=== PATIENT | female | born 1965 | race Caucasian/White ===

== ENCOUNTER 2017-02-22 19:43 | Observation (INO) ==
[2017-02-22 20:30] LABS: MANUAL DIFF NEEDED? NO
[2017-02-22 20:34] LABS: BASO% 0.4 % (0.0-0.8); EOS# 0.28 X1000 (0.0-0.7); EOS% 2.5 % (0.0-10.0); HEMATOCRIT 46.3 % (37.0-47.0); HEMOGLOBIN 15.5 g/dL (12.0-16.0); IMM GRAN# 0.03 X1000 (0.0-0.04); IMM GRAN% 0.3 % (0.0-0.5); LYMPH# 3.87 X1000 (1.2-3.4); LYMPH% 34.8 % (20.5-51.1); MCH 29.4 PG (27-31); MCHC 33.5 g/dL (33-37); MCV 87.7 FL (81-99); MONO# 1.02 X1000 (0.11-0.59); MONO% 9.2 % (1.7-9.3); MPV 10.8 FL (7.4-10.4); NEUT% 52.8 % (42.2-75.2); PLT 246 X1000 (130-400); RBC 5.28 XMIL (4.2-5.4)
--- NOTE | 2017-02-22 20:38 | EKG Report ---
Test Performed on : 02/22/2017 8:16:59 PM Test Reason : CHEST PAIN PRESSURE Blood Pressure : / mmHG Vent. Rate : 079 BPM Atrial Rate : 079 BPM P-R Int : 136 ms QRS Dur : 068 ms QT Int : 398 ms P-R-T Axes : 042 002 072 degrees QTc Int : 456 ms Normal sinus rhythm. Nonspecific T wave abnormality Abnormal ECG No previous ECGs available Unconfirmed Result
[2017-02-22] MEDS ORDERED: ASPIRIN PO ONE (20:39)
[2017-02-22] MEDS ORDERED: TYLENOL PO ONE (20:40)
[2017-02-22] MEDS ORDERED: ASPIRIN ONE (20:40)
[2017-02-22] MEDS ORDERED: NITROGLYCERIN TOP ONE (20:40)
[2017-02-22] MEDS ORDERED: NS 1,000 ML IV PRN (20:41)
[2017-02-22] MEDS ORDERED: LABETALOL IV ONE (20:42)
--- NOTE | 2017-02-22 20:48 | Diag Imaging Result Doc PS360 ---
EXAM: CHEST-2 VIEWS HISTORY: CHEST PAIN PRESSURE TECHNIQUE: PA and lateral chest COMMENT: There is no evidence of acute cardiac or pulmonary disease. There are no previous studies. IMPRESSION: No acute disease. Electronically signed by Padilla Lau 02/22/2017 8:46 PM
[2017-02-22] MEDS ORDERED: LOPRESSOR ONE (21:03)
[2017-02-22 21:06] LABS: AGAP 15; ALBUMIN 4.2 g/dL (3.5-5.0); ALKALINE PHOSPHATASE 79 U/L (32-104); BUN 13 mg/dL (8-22); CALCIUM 9.5 mg/dL (8.8-10.2); CHLORIDE 99 mmol/L (98-107); CK PROFILE 76 U/L (24-173); COSMO 272; GOT 30 U/L (10-30); GPT 35 U/L (10-36); MAGNESIUM 1.8 mg/dL (1.5-2.7); POTASSIUM 3.7 mmol/L (3.5-5.1); SODIUM 136 mmol/L (136-145); TCO2 23 mmol/L (25-35); TOTAL PROTEIN 7.2 g/dL (6.3-8.3)
[2017-02-22] MEDS ORDERED: LOPRESSOR IV ONE (21:24)
--- NOTE | 2017-02-22 23:13 | EKG Report ---
Test Performed on : 02/22/2017 11:08:33 PM Test Reason : CP Blood Pressure : / mmHG Vent. Rate : 070 BPM Atrial Rate : 070 BPM P-R Int : 140 ms QRS Dur : 068 ms QT Int : 376 ms P-R-T Axes : 042 002 056 degrees QTc Int : 406 ms Normal sinus rhythm. Nonspecific T wave abnormality Abnormal ECG When compared with ECG of 22-FEB-2017 20:16, (Unconfirmed) No significant change was found Unconfirmed Result
[2017-02-22] MEDS ORDERED: PERCOCET-5 PO ONE (23:24)
[2017-02-23] MEDS ORDERED: ZOFRAN IV PRN (00:24)
[2017-02-23] MEDS ORDERED: NITROGLYCERIN SL PRN (00:24)
[2017-02-23] MEDS ORDERED: NS 1,000 ML IV ONE (00:24)
--- NOTE | 2017-02-23 00:24 | PROVIDER DOCUMENTATION ---
This chart was entered by Yelena Mosquera Scribe, acting as scribe for Sebastian Bahena MD. HPI-Chest Pain - General Chief Complaint: Chest Pain Stated Complaint: CHEST TIGHTNESS,SOB B/P ELEVATED Time Seen by Provider: 02/22/17 20:18 Source: patient Allergies/Adverse Reactions: Patient Allergies Allergy/AdvReac Type Severity Reaction Status Date / Time nitrofurantoin Allergy RASH Verified 06/23/16 09:24 macrocrystalline * [From Macrodantin] Home Medications: Home Medication List Medication Instructions Recorded Confirmed Last Taken Type Eletriptan [Relpax] 40 mg PO DIRECTED PRN PRN 09/01/15 06/23/16 06/23/16 History Lisinopril 10 mg PO DAILY #30 tablet 06/23/16 Unknown Rx - History of Present Illness-CP Nature of Presenting Problem: pt is a 51 year old female who came to the ED with a cc of chest/back pain for the last two days. Pt reports that her blood pressure has been running high even after taken medication. Pt reports she has been SOB and nauseous. Location: reports: back Chest Pain Radiation: reports: back Quality of Pain: reports: pressure, tightness Onset/Duration: 2 days ago Timing: still present Context/Activities at Onset: reports: none Modifying Factors: improves with: nothing Associated Symptoms: reports: headache, nausea Nitro Today/Relief: no nitro taken today Aspirin Treatment Today: no aspirin today Prior Chest Pain/Cardiac Workup: reports: no prior chest pain Similar Symptoms Previously?: No Recently Seen Here or By Another Healthcare Provider: No Review of Systems - Adult - REVIEW OF SYSTEMS - ADULT Constitutional: denies: chills, fever Eyes: reports: no symptoms reported Ears, Nose, Mouth & Throat: denies: ear pain, nose pain Cardiovascular: reports: chest pain. denies: irregular heart rate, orthopnea Respiratory: reports: shortness of breath. denies: cough, pleurisy Gastrointestinal: reports: nausea. denies: difficulty swallowing, vomiting Genitourinary: reports: no symptoms reported Musculoskeletal: reports: back pain. denies: joint pain, joint swelling Integumentary: reports: no symptoms reported Neurological: reports: no symptoms reported Psychiatric: reports: no symptoms reported Endocrine: reports: no symptoms reported Hematologic/Lymphatic: reports: no symptoms reported Allergic/Immunologic: reports: no symptoms reported All Other Systems: Reviewed and Negative Past History - Adult - PAST MEDICAL HISTORY-ADULT Review of Records: reports: Nursing Assessment Review Major Childhood Illnesses: reports: denies history Cardiovascular: reports: HTN Respiratory: reports: denies history Gastrointestinal: reports: denies history Obstetrical/Gynecological: reports: denies history Genitourinary: reports: denies history Musculoskeletal: reports: denies history Neurological: reports: headaches/migraines Psychiatric: reports: denies history Endocrine/Immune: reports: denies history Other Conditions: reports: denies history - PRIOR SURGERIES/PROCEDURES Surgical/Procedure History: reports: hysterectomy, joint replacement, back/neck - PRIOR HOSPITALIZATIONS Prior Hospitalizations: reports: none - IMMUNIZATION STATUS Childhood Immunizations: See Nurse Assessment Flu Vaccine: See Nurse Assessment - FAMILY HISTORY Family History: reviewed, not pertinent Physical Exam-General - PHYSICAL EXAM-ADULT Initial Vital Signs Reviewed: Yes - CONSTITUTIONAL General Appearance: appears well, alert, no apparent distress - EYES Eyes: PERRL/EOMI, pink conjunctivae - HEAD, EARS, NOSE, MOUTH & THROAT HENMT: normocephalic/atraumatic, moist mucous membranes - NECK Neck: non-tender, full range of motion - RESPIRATORY Respiratory: chest non-tender, lungs clear - CARDIOVASCULAR Cardiovascular: tachycardia - GASTROINTESTINAL (ABDOMEN) Abdominal Exam: normal bowel sounds, non tender, soft - MUSCULOSKELETAL Back Exam: normal inspection, no CVA tenderness Extremity: normal range of motion, pedal edema - SKIN Integumentary: normal color, normal turgor - NEUROLOGIC Neurologic: grossly normal - PSYCHIATRIC Psych/Mental Status: normal mood/affect, normal thought content, normal thought process, oriented x 3 Progress - PLAN OF CARE/RESULTS Progress/Plan/Lab Results: Vital Signs - 8 hr 02/22/17 20:06 02/22/17 21:00 02/22/17 22:00 Temperature 98 F Pulse Rate 82 76 67 Respiratory Rate 18 24 20 Blood Pressure 172/93 143/92 131/81 O2 Sat by Pulse Oximetry 98 97 96 02/22/17 22:45 Temperature Pulse Rate 66 Respiratory Rate 23 Blood Pressure 132/82 O2 Sat by Pulse Oximetry 97 Laboratory Results - last 24 hr 02/22/17 02/22/17 02/22/17 20:23 20:23 20:23 WBC RBC Hgb Hct MCV MCH MCHC RDW Std Deviation Plt Count MPV Immature Gran % (Auto) Neut % (Auto) Lymph % (Auto) [place] % (Auto) Eos % (Auto) Baso % (Auto) Immature Gran # (Auto) Neut # (Auto) Lymph # (Auto) [place] # (Auto) Eos # (Auto) Baso # (Auto) D-Dimer Sodium 136 Potassium 3.7 Chloride 99 Carbon Dioxide 23 L Anion Gap 15 BUN 13 Creatinine 0.8 Estimated GFR/1.73 m2 > 60 BUN/Creatinine Ratio 16 Glucose 89 Calculated Osmolality 272 Calcium 9.5 Magnesium 1.8 Total Bilirubin 0.20 AST 30 ALT 35 Alkaline Phosphatase 79 Creatine Kinase 76 Troponin T < 0.010 Bay-Y-Lfikxjfmhpr Pept 26 Total Protein 7.2 Albumin 4.2 Globulin 3.0 Albumin/Globulin Ratio 1.0 02/22/17 02/22/17 02/22/17 20:23 20:23 22:55 WBC 11.13 H RBC 5.28 Hgb 15.5 Hct 46.3 MCV 87.7 MCH 29.4 MCHC 33.5 RDW Std Deviation 13.8 Plt Count 246 MPV 10.8 H Immature Gran % (Auto) 0.3 Neut % (Auto) 52.8 Lymph % (Auto) 34.8 [place] % (Auto) 9.2 Eos % (Auto) 2.5 Baso % (Auto) 0.4 Immature Gran # (Auto) 0.03 Neut # (Auto) 5.89 Lymph # (Auto) 3.87 H [place] # (Auto) 1.02 H Eos # (Auto) 0.28 Baso # (Auto) 0.04 D-Dimer 0.50 Sodium Potassium Chloride Carbon Dioxide Anion Gap BUN Creatinine Estimated GFR/1.73 m2 BUN/Creatinine Ratio Glucose Calculated Osmolality Calcium Magnesium Total Bilirubin AST ALT Alkaline Phosphatase Creatine Kinase 69 Troponin T Zma-M-Asmmcnbamtx Pept Total Protein Albumin Globulin Albumin/Globulin Ratio 02/22/17 22:55 WBC RBC Hgb Hct MCV MCH MCHC RDW Std Deviation Plt Count MPV Immature Gran % (Auto) Neut % (Auto) Lymph % (Auto) [place] % (Auto) Eos % (Auto) Baso % (Auto) Immature Gran # (Auto) Neut # (Auto) Lymph # (Auto) [place] # (Auto) Eos # (Auto) Baso # (Auto) D-Dimer Sodium Potassium Chloride Carbon Dioxide Anion Gap BUN Creatinine Estimated GFR/1.73 m2 BUN/Creatinine Ratio Glucose Calculated Osmolality Calcium Magnesium Total Bilirubin AST ALT Alkaline Phosphatase Creatine Kinase Troponin T < 0.010 Gal-L-Jfjvgbggnjh Pept Total Protein Albumin Globulin Albumin/Globulin Ratio Orders Category Date Time Status Cardiac Monitoring DIRECTED Care 02/22/17 20:12 Active CHEST-2 VIEWS [RAD] Stat Exams 02/22/17 20:12 Completed CBC WITH DIFF [HEME] Stat Lab 02/22/17 20:23 Completed CK PROFILE [SP CHEM] Stat Lab 02/22/17 20:23 Completed CK PROFILE [SP CHEM] Stat Lab 02/22/17 22:55 Completed COMPREHENSIVE METABOLIC PANEL [CHEM] Stat Lab 02/22/17 20:[address] D-D[address]ER [address] [COAG] Stat Lab 02/22/17 20:23 Completed MAGNESIUM [CHEM] Stat Lab 02/22/17 20:23 Completed PRO B-NATRIURETIC PEPTIDE Stat Lab 02/22/17 20:23 Completed TROPONIN T Stat Lab 02/22/17 20:23 Completed TROPONIN T Stat Lab 02/22/17 22:55 Completed 0.9% Sodium Chloride Inj [Ns] 1,000 ml Med 02/22/17 20:41 Active IV 100 mls/hr Acetaminophen [Tylenol] Med 02/22/17 20:40 Discontinued 500 mg PO NOW ONE Aspirin Med 02/22/17 20:40 Discontinued 325 mg .ROUTE .STK-MED ONE Aspirin Med 02/22/17 20:39 Discontinued 325 mg PO NOW ONE Labetalol Med 02/22/17 20:42 Discontinued 20 mg IV NOW ONE Metoprolol [Lopressor] Med 02/22/17 21:03 Discontinued 5 mg .ROUTE .STK-MED ONE Metoprolol [Lopressor] Med 02/22/17 21:24 Discontinued 5 mg IV NOW ONE Nitroglycerin Med 02/22/17 20:40 Discontinued 1 inch TOP NOW ONE Oxycodone/APAP 5 mg/325 mg [Percocet-5] Med 02/22/17 23:24 Discontinued 1 each PO NOW ONE EKG [EKG] Stat Ther 02/22/17 20:12 Draft EKG [EKG] Stat Ther 02/22/17 22:36 Draft Result Diagrams: 02/22/17 20:23 02/22/17 20:23 - REASSESSMENT Reassessment #1 Time Reassessed: 11:00 Status: improving (CHEST TIGHTNESS GONE STILL TIGHTNESS ACROSS LOWER THORACIC BACK) Departure - Departure Date of Disposition Decision: 02/23/17 Time of Disposition Decision: 00:00 DIAGNOSIS: Chest pain with high risk for cardiac etiology Disposition: ADMITTED INPATIENT 09 Certified Medical Emergency: Emergent Condition: Stable Referrals and Follow-Ups: Poncho Alvarenga MD [Primary Care Provider] - - Critical Care Note This patient required my direct & personal management of CC.: No This chart was documented by the indicated scribe, (Yelena Mosquera Scribe) and accurately reflects the services I performed and decisions made by me, Sebastian Bahena MD, as attested by the provider's signature.
[2017-02-23] MEDS ORDERED: TYLENOL PO ONE (03:11)
--- NOTE | 2017-02-23 04:42 | EKG Report ---
Test Performed on : 02/23/2017 04:25:53 AM Test Reason : C/P Blood Pressure : / mmHG Vent. Rate : 057 BPM Atrial Rate : 057 BPM P-R Int : 146 ms QRS Dur : 068 ms QT Int : 452 ms P-R-T Axes : 036 011 -03 degrees QTc Int : 439 ms Sinus bradycardia. Nonspecific T wave abnormality Abnormal ECG When compared with ECG of 22-FEB-2017 23:08, (Unconfirmed) Inverted T waves have replaced nonspecific T wave abnormality in Inferior leads Unconfirmed Result
--- NOTE | 2017-02-23 09:39 | EKG Report ---
Test Performed on : 02/23/2017 09:26:32 AM Test Reason : C/P Blood Pressure : / mmHG Vent. Rate : 058 BPM Atrial Rate : 058 BPM P-R Int : 150 ms QRS Dur : 070 ms QT Int : 458 ms P-R-T Axes : 035 005 013 degrees QTc Int : 449 ms Sinus bradycardia. with premature atrial complexes. Nonspecific T wave abnormality Abnormal ECG When compared with ECG of 23-FEB-2017 04:25, (Unconfirmed) premature atrial complexes. are now present Unconfirmed Result
[2017-02-23] MEDS ORDERED: RELPAX PO PRN (10:19)
[2017-02-23] MEDS ORDERED: MORPHINE IV PRN (10:30)
[2017-02-23] MEDS ORDERED: IMITREX SUBQ ONE (10:38)
[2017-02-23] MEDS ORDERED: LEXISCAN ONE (12:22)
--- NOTE | 2017-02-23 13:11 | HISTORY AND PHYSICAL ---
CHIEF COMPLAINT: Chest pressure. HISTORY OF PRESENT ILLNESS: This is a 51-year-old, female with a history of hypertension and migraine headaches. She presented to the emergency room complaining of chest pressure as well as back pain. She stated that this had been present for the last 48 hours. She had an accompanying headache. She denied any injury, shortness of breath, or palpitations. She cannot state specific exacerbating or alleviating factors. She was noted to have negative troponins. Blood pressure was 172/93 at 1st arrival to the emergency room. She was given nitroglycerin ointment as well as Lopressor and labetalol. Blood pressures did decrease down to 113-140s/60s- 70s. Her chest pressure did subside. She did develop a headache after receiving the nitroglycerin with accompanying nausea and vomiting. She does have migraines but she states this is not her normal migraine. PAST MEDICAL HISTORY: Hypertension and migraine headaches. PAST SURGICAL HISTORY: Breast reduction, D and C, right knee, and back surgery. SOCIAL HISTORY: She denies alcohol, tobacco, or illicit drug use. ALLERGIES: Nitrofurantoin which causes a rash. HOME MEDICATIONS: Clonidine 0.1 p.r.n., lisinopril 10 daily, Relpax 40 daily. REVIEW OF SYSTEMS: A 14 point review of systems was discussed with the patient with pertinent positives stated in the HPI. She denied dizziness, lightheaded, syncope, palpitations, PND, orthopnea, dyspnea on exertion, nausea, vomiting, diarrhea, constipation, black or bloody vomitus, black or bloody stools, hematuria, dysuria, frequency, urgency. PHYSICAL EXAMINATION: GENERAL: This is a 51-year-old female who is lying in the bed, in no distress. VITAL SIGNS: Blood pressure is 113/69, with a heart rate of 57, respirations are 18, temperature is 97.7 degrees oral, with a room air saturation of 98-99%. HEENT: Head is normocephalic, atraumatic. Pupils equal, round, react to light. EOMs are intact. Sclerae are anicteric. Mucous membranes are moist. NECK: Supple. Trachea midline. CARDIOVASCULAR: Regular rate and rhythm. S1 and S2 are appreciated. PULMONARY: Breath sounds are clear with no increased work of breathing noted. GASTROINTESTINAL: Soft, nontender, nondistended with bowel sounds in all 4 quadrants. MUSCULOSKELETAL: Good range of motion of joints. NEUROLOGIC: She is alert and oriented x3. EXTREMITIES: No clubbing cyanosis, or edema. Calves are nontender. Pulses are palpable x4. DIAGNOSTIC DATA: WBC is 11.1, with a hemoglobin of 15.5, hematocrit 46.3, and platelets of 246,000. Sodium is 136, potassium 3.7, BUN 13, creatinine 0.8, with a glucose of 89. Troponins are negative on multiple occasions. D-dimer is 0.5. EKG reveals sinus bradycardia and sinus rhythm, rates varying from 55 to 80s. Chest x-ray revealed no acute disease. ASSESSMENT AND PLAN: This is a 51-year-old, female who is lying in the bed in mild distress due to a migraine headache. 1. Chest pressure. 2. Migraine headaches. 3. Hypertension. 4. Deep venous thrombosis prophylaxis, gastrointestinal prophylaxis. PLAN: She will be admitted to the hospital. Placed on telemetry. She will remain NPO. A Lexiscan will be performed. We will address her headache so that she can perform the stress test. We will give morphine and Zofran, and will give 1 dose of Imitrex and re-evaluate. Further treatments pending hospital course. Dictated by ROSAMARIA Shea for Devin Ojeda MD cc: ROSAMARIA Shea MD
[2017-02-23 14:36] VITALS: BP 118/74
--- NOTE | 2017-02-23 16:59 | Diag Imaging Result Document ---
PROCEDURE NAME: MYOCARDIAL PERF SCAN, STR/REST - 02/23/2017 STUDY: Rest/stress Lexiscan myocardial perfusion study. INDICATION: Patient with chest pain. DESCRIPTION: The patient came into the nuclear lab and received a rest injection of technetium 99 sestamibi 15.8 mCi. Multiple tomographic views of the cardiac structures were obtained at rest. Subsequently, she underwent infusion of Lexiscan 0.4 mg. At peak infusion she was injected with technetium 99 sestamibi 45.6 mCi. Multiple tomographic views of the cardiac structures were obtained following the completion of the protocol. The following is a summary of the electrocardiographic portion of the study. Resting ECG showed a sinus rhythm with rate of 63 beats per minute. Resting blood pressure was 129/81. Resting ECG showed a nonspecific T wave change. During infusion of Lexiscan the heart rate increased to 97 beats per minute. Blood pressure went up to 140/84. The patient reported no chest pain, shortness of breath, or palpitations. The ECG showed no changes. Following the completion of the infusion heart rate and blood pressure returned back to her baseline. No significant abnormalities were noted during the recorded phase. In summary, electrocardiographic response to the infusion of Lexiscan was deemed to be normal. Next is the summary of the myocardial perfusion portion of the study. Poststress tomographic views of the left ventricle showed very trivial decreased uptake of radiotracer at the level of the basal inferior to mid inferior wall. The rest images showed that this defect is fixed. It is mild. The polar plots revealed the same. There is no evidence of inducible ischemia. There is a trivial basal to mid inferior wall defect that based on the review of the rotating/raw images is likely to represent attenuation artifact from breast and soft tissue. The patient weighs 267 pounds and this study was acquired in the supine position. Gated SPECT shows normal left ventricular systolic function with an ejection fraction of 74% with normal ventricular volumes and no wall motion abnormality. The lung/heart ratio is normal. TID is normal. SUMMARY: In summary, this study shows: 1. Unremarkable electrocardiographic response to a Lexiscan protocol. 2. Normal poststress myocardial perfusion scan. There is no scintigraphic evidence of pharmacologically-induced myocardial ischemia utilizing the Lexiscan protocol. Attenuation artifact involving the inferior wall is acknowledged. 3. Normal left ventricular systolic function with ejection fraction estimated at 74% with normal ventricular volumes and no wall motion abnormality. Clinical correlation is recommended. cc: Omid Amado MD
== END 2017-02-23 18:30 | disposition home or self-care (01) ==
LOC: P.ED 19:43 → INTOOBSV 02-23 00:47 → P.MEDSURG 02-23 00:47
PROVIDERS: ADMIT Family Medicine; ATTEND Family Medicine